=== PATIENT | female | born 1990 | race Caucasian/White ===

== ENCOUNTER 2018-05-15 23:59 | Emergency (ER) | payer MEDICAID ==
[~2018-05-15] VITALS: Ht 162.6 cm; Wt 81.6 kg
[2018-05-16 00:19] VITALS: BP_SYST 134
[2018-05-16] MEDS ORDERED: NACL 0.9% 1,000 ML IV ONE (01:28)
[2018-05-16] MEDS ORDERED: KETOROLAC TROMETHAMINE 15 MG VIAL IVP ONE (01:30)
[2018-05-16 02:09] LABS: BASOPHILS % (AUTO) 0.5 % (0.0-2.0); EOSINOPHILS % (AUTO) 0.2 % (0.0-4.0); HEMATOCRIT 37.3 % (36-48); HEMOGLOBIN 12.9 g/dL (12.0-16.0); LYMPHOCYTES # (AUTO) 1.6 K/uL (1.0-5.5); LYMPHOCYTES % (AUTO) 21.5 % (20.5-51.5); MEAN CORPUSCULAR HEMOGLOBIN 31 pg (27-31); MEAN CORPUSCULAR HGB CONC 35 % (32-36); MEAN CORPUSCULAR VOLUME 90 fL (79.0-98.0); MONOCYTES # (AUTO) 0.4 K/uL (0.0-1.0); MONOCYTES % (AUTO) 5.9 % (1.7-9.3); NEUTROPHILS # (AUTO) 5.4 K/uL (1.8-7.7); NEUTROPHILS % (AUTO) 71.9 % (40.0-70.0); PLATELET COUNT (AUTO) 324 K/uL (130-430); RED BLOOD CELL COUNT(AUTO) 4.16 MIL/uL (4.2-6.2); RED CELL DISTRIBUTION WIDTH 12.5 % (9.0-15.0); WHITE BLOOD COUNT (AUTO) 7.4 K/uL (4.8-10.8)
[2018-05-16 02:13] LABS: BILIRUBIN,URINE NEGATIVE (NEGATIVE); BLOOD, URINE NEGATIVE (NEGATIVE); CLARITY/URINE CLEAR (CLEAR); COLOR,URINE YELLOW (YELLOW); GLUCOSE,URINE NEGATIVE (NEGATIVE); KETONES,URINE NEGATIVE (NEGATIVE); LEUKOCYTE ESTERASE ,URINE NEGATIVE (NEGATIVE); NITRITE, URINE NEGATIVE (NEGATIVE); PROTEIN URINE NEGATIVE (NEGATIVE); UROBILINOGEN,URINE 0.2 (0.2-1.0)
[2018-05-16 02:15] LABS: CALCIUM 9.1 mg/dL (8.4-11.0); CREATININE 0.72 mg/dL (0.55-1.30); POTASSIUM 3.9 mmol/L (3.5-5.1)
[2018-05-16 02:32] LABS: FREE T4 (FREE THYROXINE) 1.2 ng/dl (0.8-1.5); THYROID STIMULATING HORMONE 1.07 uIu/mL (0.36-3.74); TOTAL BILIRUBIN 0.3 mg/dL (0.0-1.0)
[2018-05-16 04:03] VITALS: BP_SYST 132
== END 2018-05-16 04:05 | disposition home or self-care (01) ==
LOC: SED 23:59
DX: B34.9 Viral infection, unspecified (principal); R03.0 Elevated blood-pressure reading, without diagnosis of hypertension
CPT/HCPCS: 36415; 80053; 81003; 84439; 84443; 85025; 96361; 96374; 99284; J1885; J7030

== ENCOUNTER 2022-07-02 13:34 | Emergency (ER) | payer MEDICAID ==
[~2022-07-02] VITALS: Ht 162.6 cm; Wt 87.1 kg
[2022-07-02 13:45] VITALS: BP_SYST 111
--- NOTE | 2022-07-02 14:00 | NUR ---
PT AMBULATED BACK FROM TRIAGE AND PLACED INTO ROOM. REPORT RECEIVED FROM [employer] CONTROLLER, CARE ASSUMED. PT ASSESSED.
--- NOTE | 2022-07-02 14:10 | NUR ---
ER Dr. ALVARADO at bedside examining patient.
[2022-07-02] MEDS ORDERED: BACITRACIN 1 GM OINT TP ONE (14:15)
[2022-07-02] MEDS ORDERED: DIPHTH,PERTUSS(ACELL),TET VAC 0.5 ML VIAL (Tdap) I.M. ONE (14:15)
[2022-07-02] MEDS ORDERED: LIDOCAINE 1% 10 MG/ML, 20 ML MDV INJ ONE (14:15)
[2022-07-02] MEDS ORDERED: LIDOCAINE 1%, 20 ML MDV 20 ML ONE (14:21)
--- NOTE | 2022-07-02 14:21 | NUR ---
LAC TRAY WITH LIDOCAINE SET UP AT BEDSIDE, DR ALVARADO NOTIFIED
--- NOTE | 2022-07-02 14:25 | NUR ---
DR ALVARADO AT BEDSIDE FOR LACERATION REPAIR
--- NOTE | 2022-07-02 15:00 | NUR ---
FINGER LAC SITE CLEANSED AND ABX OINTMENT APLLIED, COVERED WITH DSD, WOUND CARE INSTRUCTED TO PT
--- NOTE | 2022-07-02 15:10 | NUR ---
BOOSTRIX IM GIVEN WITHPT CONSENT. PT STATES UNDERSTTANDING OF RISKS AND BENEFITS OF INJECTION WITH ,PT ADVISED TO FU WITH [facility] IF SHE HAS DOUBTS OF RECEIVING THE BOOSTRIX . SHE THEN CONSENTED TO THE INJECTION AFTER LOOKING UP SAFETY WITH
--- NOTE | 2022-07-02 15:28 | NUR ---
Patient given written and verbal discharge instructions and verbalizes understanding. ER MD discussed with patient the results and treatment provided. Patient in stable condition. ID arm band removed. Patient educated on pain management, WOUND CARE, SUTURE REMOVAL and to follow up with PMD. Pain Scale . Opportunity for questions provided and answered. Medication side effect fact sheet provided.
[2022-07-02 15:29] VITALS: BP_SYST 132
== END 2022-07-02 15:28 | disposition home or self-care (01) ==
LOC: SED 13:34
DX: S61.213A Laceration without foreign body of left middle finger without damage to nail, initial encounter (principal); Z79.899 Other long term (current) drug therapy; W26.8XXA Contact with other sharp object(s), not elsewhere classified, initial encounter; Y93.89 Activity, other specified; Y92.89 Other specified places as the place of occurrence of the external cause; Y99.8 Other external cause status
CPT/HCPCS: 99283; 73140; 90715; 90471; 12002; J2001